=== PATIENT | female | born 1960 | race Two or more races ===

== ENCOUNTER 2023-01-09 11:51 | Emergency (ER) | payer OTHER ==
[~2023-01-09] VITALS: Ht 172.7 cm; Wt 65.8 kg
[2023-01-09] MEDS ORDERED: SYNTHROID88 MCG PO (12:01)
== END 2023-01-09 18:52 | disposition home or self-care (01) ==
LOC: ER 11:51
DX: K57.32 Diverticulitis of large intestine without perforation or abscess without bleeding (principal); K57.30 Diverticulosis of large intestine without perforation or abscess without bleeding; E03.9 Hypothyroidism, unspecified; K57.92 Diverticulitis of intestine, part unspecified, without perforation or abscess without bleeding

== ENCOUNTER 2023-02-10 08:45 | Inpatient (IN) | payer OTHER ==
[~2023-02-10] VITALS: Ht 172.7 cm; Wt 64.9 kg
[~2023-02-10 08:45] MED LIST: SYNTHROID88 MCG PO
[2023-02-10] MEDS ORDERED: SYNTHROID50 MCG PO (10:31)
[2023-02-16] MEDS ORDERED: NEURONTIN300 MG PO (12:11)
[2023-02-16] MEDS ORDERED: ACETAMINOPHEN500 M2 PO (12:11)
== END 2023-02-16 14:51 | disposition home or self-care (01) | DRG 331 ==
LOC: O/R 02-12 07:48 → SURG 02-12 08:45 → SURH 02-12 12:26
PROVIDERS: ADMIT Surgery; ATTEND Surgery
PROC: 0DBP4ZZ Excision of Rectum, Percutaneous Endoscopic Approach (ICD-10-PCS; 2023-02-12)
PROC: 0DJD8ZZ Inspection of Lower Intestinal Tract, Via Natural or Artificial Opening Endoscopic (ICD-10-PCS; 2023-02-12)
PROC: 0DTN4ZZ Resection of Sigmoid Colon, Percutaneous Endoscopic Approach (ICD-10-PCS; principal; 2023-02-12 10:25)
DX: K57.20 Diverticulitis of large intestine with perforation and abscess without bleeding (principal); Z20.822 Contact with and (suspected) exposure to COVID-19

== ENCOUNTER 2023-04-09 16:52 | Inpatient (IN) | payer OTHER ==
[~2023-04-09] VITALS: Ht 172.7 cm; Wt 54.4 kg
[~2023-04-09 16:52] MED LIST changes: +ACETAMINOPHEN500 M2 PO; +NEURONTIN300 MG PO; +SYNTHROID50 MCG PO
--- NOTE | 2023-04-09 17:16 | NUR ---
PTE ALERTA Y ORIENTADA X3 LA MISMA REFIERE QUE TUVO UN PROCESO DE OPERACION DE DIBERTICULITIS EL DR. MICHAELLE ANTHONY FUE QUIEN OPERO EL 2022. EL CARMEN DE HOY PACIENTE PRESENTA DOLOR ANAL, NO PRESENTA [place] AL MOMENTO. EL DOLOR LE CORRE A LA PIERNA Y AL PELVIS.
--- NOTE | 2023-04-09 18:54 | NUR ---
PTE EVALUADA POR EL DR PAN QUIEN ORDENA EL [place]. SE ORIENTA SOBRE EL [place] ORDENADO, LO CUAL REFIERE ENTENDER, SE REALIZAN PRUEBAS DE LABORATORIO Y SECANALIZA VICK ORDEN MEDICA Y SIGUIENDO MEDIDAS ASEPTICAS. PENDIENTE RESULTADOS DE LABORATORIO PARA REALIZAR CT W IV CONTRAST.
--- NOTE | 2023-04-09 23:40 | NUR ---
SE RECIBE PACIENTE DE TURNO ANTERIOR ALERTA EN KEVIN CON BARANDAS ELEVADAS. PTE CON H/L PATENTE Y ORLANDO DE EDEMA.
--- NOTE | 2023-04-10 07:22 | NUR ---
SE RECIBE PTE ALERTA Y ORIENTADO POR 3 EN COMPANIA DE [facility] PTE EN KEVIN CON BARANDAS ELEVADA Y TIMBRE ACCESIBLE, NO PRESENTA DOLOR AL MOMENTO SE OBSERVA VENOPUNCION PATETENTE Y ORLANDO DE EDEMA, PTE EN ESPERA DEL DR ABA DELEON, PTE SE MANTIENE EN OBSERVACION Y BAJO TRATAMIENTO.
[2023-04-13] MEDS ORDERED: SIMVASTATIN5 MG (15:41)
[2023-05-05] MEDS ORDERED: CARAFATE1 GM PO (15:59)
[2023-05-05] MEDS ORDERED: HYOSCYAMINE0.125 M1 SL (15:59)
[2023-05-05] MEDS ORDERED: PANTOPRAZOLE SO40 MG PO (16:00)
[2023-05-05] MEDS ORDERED: INTESTINEX680 M1 PO (16:00)
[2023-05-05] MEDS ORDERED: METRONIDAZOLE500 MG PO (16:01)
[2023-05-05] MEDS ORDERED: LEVOFLOXACIN500 MG PO (16:02)
== END 2023-05-05 17:50 | disposition home or self-care (01) | DRG 386 ==
LOC: ER 16:52 → ICU-2 04-10 13:33 → SURH 04-11 13:09
PROVIDERS: ADMIT Surgery; ATTEND Surgery
PROC: BW211ZZ Computerized Tomography (CT Scan) of Abdomen and Pelvis using Low Osmolar Contrast (ICD-10-PCS; 2023-04-09)
PROC: 4A12X4Z Monitoring of Cardiac Electrical Activity, External Approach (ICD-10-PCS; 2023-04-11)
PROC: 02HV33Z Insertion of Infusion Device into Superior Vena Cava, Percutaneous Approach (ICD-10-PCS; 2023-04-12)
PROC: BW211ZZ Computerized Tomography (CT Scan) of Abdomen and Pelvis using Low Osmolar Contrast (ICD-10-PCS; 2023-04-16)
PROC: BW211ZZ Computerized Tomography (CT Scan) of Abdomen and Pelvis using Low Osmolar Contrast (ICD-10-PCS; 2023-04-22)
PROC: 0D7P8ZZ Dilation of Rectum, Via Natural or Artificial Opening Endoscopic (ICD-10-PCS; principal; 2023-04-29)
DX: K51.514 Left sided colitis with abscess (principal); K91.30 Postprocedural intestinal obstruction, unspecified as to partial versus complete; K91.89 Other postprocedural complications and disorders of digestive system; K51.512 Left sided colitis with intestinal obstruction; K62.4 Stenosis of anus and rectum; N83.202 Unspecified ovarian cyst, left side; Z90.49 Acquired absence of other specified parts of digestive tract; E03.9 Hypothyroidism, unspecified

== ENCOUNTER 2023-05-20 20:23 | Inpatient (IN) | payer OTHER ==
[~2023-05-20] VITALS: Ht 172.7 cm; Wt 58.5 kg
[~2023-05-20 20:23] MED LIST changes: +CARAFATE1 GM PO; +HYOSCYAMINE0.125 M1 SL; +INTESTINEX680 M1 PO; +LEVOFLOXACIN500 MG PO; +METRONIDAZOLE500 MG PO; +PANTOPRAZOLE SO40 MG PO; +SIMVASTATIN5 MG
[2023-06-04] MEDS ORDERED: VANCOMYCIN HCL125 MG PO (14:46)
[2023-06-04] MEDS ORDERED: HYOSCYAMINE0.125 M1 SL (14:47)
[2023-06-04] MEDS ORDERED: PEPCID AC20 MG PO (14:48)
[2023-06-04] MEDS ORDERED: TRAMADOL HCL50 MG PO (14:48)
[2023-06-04] MEDS ORDERED: INTESTINEX680 M1 PO (14:49)
== END 2023-06-04 15:58 | disposition home or self-care (01) | DRG 395 ==
LOC: ER 20:23 → SEC-K 05-21 08:28 → SURH 05-21 10:09 → MEDJ 05-22 13:40
PROVIDERS: ADMIT Surgery; ATTEND Surgery
PROC: BW21YZZ Computerized Tomography (CT Scan) of Abdomen and Pelvis using Other Contrast (ICD-10-PCS; 2023-05-20)
PROC: 02HV33Z Insertion of Infusion Device into Superior Vena Cava, Percutaneous Approach (ICD-10-PCS; 2023-05-22)
PROC: 0D7P8ZZ Dilation of Rectum, Via Natural or Artificial Opening Endoscopic (ICD-10-PCS; principal; 2023-06-03)
DX: K91.89 Other postprocedural complications and disorders of digestive system (principal); K62.4 Stenosis of anus and rectum; K52.9 Noninfective gastroenteritis and colitis, unspecified; K29.70 Gastritis, unspecified, without bleeding; E03.9 Hypothyroidism, unspecified; K57.90 Diverticulosis of intestine, part unspecified, without perforation or abscess without bleeding

== ENCOUNTER 2025-03-22 06:41 | Day surgery (SDC) | payer OTHER ==
[2025-03-16 16:15] LABS: INR 1.01; PARTIAL THROMBOPLASTIN TIME 29.2 SECONDS (22.0-34.0)
[~2025-03-22 06:41] MED LIST changes: +PEPCID AC20 MG PO; +TRAMADOL HCL50 MG PO; +VANCOMYCIN HCL125 MG PO
[2025-03-22] MEDS ORDERED: DIPHENHYDRAMINE HCL 50 MG/ML VIAL 1ML IV ONE (09:45)
[2025-03-22] MEDS ORDERED: MIDAZOLAM HCL 2 MG/2 ML VIAL IV ONE (09:45)
[2025-03-22] MEDS ORDERED: fentaNYL CITRATE 50 MCG/ML AMPUL IV ONE (09:45)
== END 2025-03-22 11:15 | disposition home or self-care (01) ==
LOC: AMB-ENDOS 06:41 → CIR.AMB 14:15 → AMB-ENDOS 14:15
PROVIDERS: Surgery; ATTEND Internal Medicine
DX: K57.30 Diverticulosis of large intestine without perforation or abscess without bleeding (principal); K57.20 Diverticulitis of large intestine with perforation and abscess without bleeding; K62.89 Other specified diseases of anus and rectum; K59.09 Other constipation; K21.9 Gastro-esophageal reflux disease without esophagitis; K29.00 Acute gastritis without bleeding; K20.80 Other esophagitis without bleeding